=== PATIENT | male | born 1960 | race Caucasian/White ===

== ENCOUNTER 2016-11-05 07:12 | Emergency (ER) | payer MEDICAID, OTHER ==
[2016-11-05 07:16] VITALS: BP 135/75; PULSE 106; RESP 18; O2SAT 98
--- NOTE | 2016-11-05 07:36 | ED.REPORT ---
HPI-General Illness Date of Service November 05, 2016 ED Provider: Dr. Erika Arias The patient is a 56 year old male who presents to the ED due to flu-like symptoms onset 7 days ago. Associated symptoms include nasal congestion, chills , sweats, fever, headache, non-productive cough, SOB, and body aches. He felt like he was getting better a few days ago, but then developed worsening symptoms. The pt does not have a primary care physician and has not previously had any contact for routine medical evaluation. Nursing Notes Stated Complaint: HEAD COLD Chief Complaint: FLU/Cold Symptoms Nursing Notes Reviewed: Yes Allergies: Coded Allergies: No Known Allergies (Unverified , 11/05/16) Scheduled Azithromycin (Zithromax) 250 Mg Tablet 250 MG PO DAILY next dose on 11/06, you had your first dose in the ER General Time Seen by MD: 07:35 Chief Complaint Cough Hx Obtained From: Patient Arrived By: Walk-in Onset Occurred: 6 days ago Symptom Duration: Since onset Associated with: Reports: Congestion, Cough, Shortness of breath Recent Healthcare: No recent doctor visit, No recent hospitalization Similar Sx Previous: No Past Medical History Past Medical History denies Smoking History Current Every Day Smoker Social History Alcohol Use: Denies alcohol use Drug Use: THC Other Social History: Local resident Ambulatory Status Independent Review of Systems Full Review of Systems Constitutional: Reports: Chills, Fever, Malaise Ears / Nose / Throat: Reports: Nasal congestion Respiratory: Reports: Non-productive cough, Shortness of breath Skin: Reports Diaphoresis Neurologic: Reports: Headache Complete sys rev & neg: except as marked. Physical Exam Vital Signs Vital Signs Date Time Temp Pulse Resp B/P Pulse Ox O2 Delivery O2 Flow Rate FiO2 11/05/16 10:10 37.3 87 32 116/79 97 Room Air 11/05/16 09:04 37.3 87 32 116/79 97 Room Air 11/05/16 07:16 38.2 106 18 135/75 98 Room Air Initial VS: Reviewed ENT: Conjunctiva normal, No scleral icterus Abdomen / GI: Soft, Non-tender, No guarding, No rebound, No distention Extremities: Vascular intact, Neuro intact, No swelling, No tenderness Skin: Warm, Dry Neurologic: Alert, Oriented General/Constitutional: Awake, Cooperative Head / Eyes: Normocephalic, PERRL, EOMI Respiratory / Chest: No wheezing Rales / Rhonchi: Positive: Rhonchi coarse L rhonchi in left bases and left axilla Heart Rate / Rhythm: Positive: Tachycardia Interpretation & Diagnostics Lab Results Interpretation Result Diagram: 11/05/16 0805 11/05/16 0805 Test 11/05/16 08:05 White Blood Count 12.9th/mm3 (3.8-10.1) Red Blood Count 3.95mil/mm3 (4.40-5.80) Hemoglobin 11.8g/dL (13.8-17.2) Hematocrit 35.2% (41.0-50.0) Mean Corpuscular Volume 89.1fL (81-100) Mean Corpuscular Hemoglobin 29.9pg (27.0-35.0) Mean Corpuscular Hemoglobin Concent 33.5% (32.0-37.0) Red Cell Distribution Width 13.4% (12.3-15.4) Platelet Count 263bil/L (150-400) Neutrophils (%) (Auto) 76.0% (40-74) Lymphocytes (%) (Auto) 11.7% (14-46) Monocytes (%) (Auto) 10.0% (4-12) Eosinophils (%) (Auto) 1.4% (0-5) Basophils (%) (Auto) 0.6% (0-3) Sodium Level 136mEq/L (134-144) Potassium Level 4.6mEq/L (3.5-5.2) Chloride Level 96mEq/L (97-108) Carbon Dioxide Level 24mmol/L (18-29) Blood Urea Nitrogen 13mg/dL (6-24) Creatinine 0.81mg/dL (0.76-1.27) Estimat Glomerular Filtration Rate 105mL/min (>59) Glucose Level 126mg/dL (60-99) Lactic Acid Level 0.9mmol/L (0.4-2.0) Calcium Level 9.1mg/dL (8.5-10.1) Total Bilirubin 0.5mg/dL (0.0-1.2) Aspartate Amino Transf (AST/SGOT) 46U/L (0-50) Alanine Aminotransferase (ALT/SGPT) 55U/L (0-44) Alkaline Phosphatase 127U/L (25-150) Troponin T < 0.010ug/L (0.0-0.011) Pro-B-Type Natriuretic Peptide 337.2pg/mL (0-210) Total Protein 7.3g/dL (6.4-8.4) Albumin 3.5g/dL (3.4-5.0) ECG Interpretation ECG Interpretation: LVH w/ secondary repolarization abnormality Time: 08:23 Interpreted by: ED physician Normal ECG Interpretation: Normal sinus rhythm (rate 95) X-Ray Chest Interpretation Chest Xray Interpretation: IMPRESSION: Mild bilateral patchy pneumonia pattern, greater on the right than the left. Moderate-sized hiatal hernia behind the heart. Dictated by: Braulio Ward M.D. on 11/05/2016 at 8:24 Approved by: Braulio Ward M.D. on 11/05/2016 at 8:25 View: Portable Interpretation / Wet Read by: Interpret - Radiologist Re-Eval/Medical Decision Med Decision/Clinical Course 56-year-old otherwise healthy gentleman presents with fever and cough after upper respiratory infection for the last week. Initially had felt a bit better and over the last 2-3 days got worse. Clinically does have a left lower lobe pneumonia. Chest x-ray suggests bilateral infiltrates. Respiratory rate heart rate blood pressure and oxygen saturations are all within limits he is mildly febrile at 38.5. His pneumonia severity index is low and he is appropriate for outpatient treatment. Will be discharged with azithromycin and names for primary care providers to establish care. Of note EKG did show left ventricular hypertrophy which also suggests chronic hypertension. He is informed of this and instructed to review this with his primary care physician Time of Eval: 09:00 Patient Status: Mild relief Re-Evaluation/Progress Note: Pt rechecked. Waiting on blood work. Informed pt of diagnosis of pneumonia and plan of treatment. Given first dose of Azithromycin at the ED and will be sent home with 4 more days of antibiotic. Pt understands and agrees with plan. All questions addressed. F/U and RTER warnings given. Counseled Regarding: Diagnosis, Lab results, Need for follow-up, When/why to return to ED Discharge & Departure Primary Impression: Pneumonia Pneumonia type: due to unspecified organism Laterality: left Lung location : lower lobe of lung Qualified Code: J18.1 - Lobar pneumonia, unspecified organism Ruled Out: Congestive heart failure, Respiratory distress, STEMI (ST elevation myocardial infarction) Disposition: Home Discharge Condition All VS Reviewed: Yes Condition: Stable Additional Instructions: Your symptoms are due to pneumonia. Fortunately, your pneumonia is not severe enough that you need to remain in the hospital. We did start antibiotics while urine the hospital, and I am sending you home with 4 more days of the antibiotic Azithromycin. You will probably feel sick for a few more days and then begin to get improve. Need to establish care with a primary care physician and have given her some phone numbers and options. On your EKG there was signs of left ventricular hypertrophy which is often a sign of high blood pressure that needs to be diagnosed and controlled. You need to review this with the primary care physician as well. Return to the Emergency Department for any new or worsening symptoms including shortness of breath, chest pain, and high fever. I hope you feel better soon! Referrals: [facility] Scribe Attestation Portion of this note were transcribed by Amparo Neal. I, Dr. Erika Arias, personally performed the history, physical exam, and medical decision-making: I reviewed and confirmed the accuracy for the information in the transcribed note. Signed by: emi Bundy, 11/05/16 0800 copies to: [facility] Cici Arias MD November 05, 2016 07:36 Amparo Neal November 05, 2016 07:44
[2016-11-05] MEDS ORDERED: cefTRIAXone Inj 2,000 MG in Dextrose 5% Minibag Plus 50 ML IV ONE (07:50)
[2016-11-05] MEDS ORDERED: Azithromycin Inj 500 MG in Dextrose 5% w/Vial Mate 250 ML IV ONE (07:50)
[2016-11-05] MEDS ORDERED: 0.9% Sodium Chloride 1,000 ML IV ONE (07:50)
[2016-11-05 08:18] LABS: BASOPHILS % (AUTO) 0.6 % (0-3); EOSINOPHILS % (AUTO) 1.4 % (0-5); Mean Corpuscular Hemoglobin 29.9 pg (27.0-35.0); Mean Corpuscular Volume 89.1 fL (81-100); Platelet Count 263 bil/L (150-400)
--- NOTE | 2016-11-05 08:26 | DRSVH ---
PROCEDURE: X-RAY CHEST ONE VIEW, PORTABLE ([id number]) INDICATIONS: dyspnea TECHNIQUE: One view of the chest was acquired. COMPARISON: None. FINDINGS: Surgical changes and devices: None. Lungs and pleura: No pleural effusions or pneumothorax. Lungs are abnormal with a patchy pneumonia pattern greater on the right than left, mild in overall severity.. Mediastinum: Mediastinal contours appear normal except for a hiatal hernia that is moderate in size behind the heart. Heart size is normal. Bones and chest wall: No suspicious bony lesions. Overlying soft tissues appear unremarkable. IMPRESSION: Mild bilateral patchy pneumonia pattern, greater on the right than the left. Moderate-si zed hiatal hernia behind the heart. Dictated by: Braulio Ward M.D. on 11/05/2016 at 8:24 Approved by: Braulio Ward M.D. on 11/05/2016 at 8:25
[2016-11-05 08:58] LABS: TROPONIN T < 0.010 ug/L (0.0-0.011)
[2016-11-05 09:04] VITALS: BP 116/79; PULSE 87; RESP 32; O2SAT 97
[2016-11-05] MEDS ORDERED: ZIT250 PO (09:56)
[2016-11-05 10:10] VITALS: BP 116/79; PULSE 87; RESP 32; O2SAT 97
== END 2016-11-05 10:11 | disposition home or self-care (01) ==
LOC: SED 07:12
DX: J18.1 Lobar pneumonia, unspecified organism (principal); F17.200 Nicotine dependence, unspecified, uncomplicated; F12.10 Cannabis abuse, uncomplicated
CPT/HCPCS: 36415; 71010; 80053; 83605; 83880; 84484; 85025; 87040; 93005; 96365; 96368; 99285; J0456; J0696; J7030